=== PATIENT | female | born 1965 | race Two or more races ===

== ENCOUNTER 2018-01-05 17:32 | Emergency (ER) | payer SELFPAY | END 2018-01-05 18:39 | disposition home or self-care (01) | LOC: ER 17:32 | DX: B34.9 Viral infection, unspecified (principal) | CPT/HCPCS: 99283 ==

== ENCOUNTER → 2020-06-20 | Outpatient (CLI) | payer OTHER ==
[2018-01-05 17:58] VITALS: BP 141/85
[~2020-06-20] MED LIST: IOHEXOL 240 MG/ML 50ML VIAL. PO ONE; IOHEXOL 300 MG/ML 100ML VIAL. IV ONE; ONDA4TAB10 SL; OSEL75CA PO
[2020-06-20 09:35] LABS: CREATININE 0.8 mg/dL (0.6-1.0); GFR 74.2
--- NOTE | 2020-06-20 12:37 | RAD ---
EXAM: Chest and abdomen CT with intravenous contrast. HISTORY: Rib pain. TECHNIQUE: Computed tomographic images of the chest and abdomen were obtained following the administration of intravenous contrast. Multiplanar reformatting was performed. *One or more of the following individualized dose reduction techniques were utilized for this examination: 1. Automated exposure control. 2. Adjustment of the mA and/or kV according to patient size. 3. Use of iterative reconstruction technique. COMPARISON: None. FINDINGS: Chest: The heart is normal in size. The aorta is normal in caliber. There is no lymphadenopathy. There is no infiltrate, pleural effusion or pneumothorax. There is no suspicious pulmonary nodule. No rib fracture or suspicious renal lesion is seen. There is no thoracic vertebral fracture. Abdomen: There is no suspicious hepatic lesion. There is focal fatty infiltration along the gallbladder fossa and falciform ligament. The gallbladder is surgically absent. The pancreas, spleen, stomach, adrenal glands and kidneys are unremarkable. The appendix is surgically absent. There is colonic diverticulosis. There is mild degenerative change at the lower lumbar levels. IMPRESSION: No acute thoracic or abdominal finding. Electronically signed by: Bailey Rice MD (06/20/2020 12:34 PM) [id number]
== END | disposition home or self-care (01) ==
LOC: CT 11:37
PROVIDERS: ATTEND Physician Assistant Medical
DX: K57.30 Diverticulosis of large intestine without perforation or abscess without bleeding (principal); R07.81 Pleurodynia; G89.29 Other chronic pain; M47.816 Spondylosis without myelopathy or radiculopathy, lumbar region; E66.9 Obesity, unspecified; R10.12 Left upper quadrant pain; Z87.442 Personal history of urinary calculi; Z90.49 Acquired absence of other specified parts of digestive tract; Z90.89 Acquired absence of other organs
CPT/HCPCS: 36415; 71260; 74160; 82565; 84520; Q9966; Q9967